=== PATIENT | male | born 1995 | race Caucasian/White ===

== ENCOUNTER 2017-11-07 07:09 | Emergency (ER) | payer OTHER ==
[~2017-11-07] VITALS: Ht 172.7 cm; Wt 76.2 kg
[2017-11-07] MEDS ORDERED: SODIUM CHLORIDE 0.9% 1,000 ML IV ONE (07:33)
[2017-11-07] MEDS ORDERED: SODIUM CHLORIDE 0.9% 1,000ML IVBOLUS ONE (08:00)
[2017-11-07] MEDS ORDERED: ONDANSETRON 2MG/ML, 2ML IVPush ONE (08:00)
[2017-11-07] MEDS ORDERED: FAMOTIDINE 20 MG/2 ML IVP ONE (08:00)
[2017-11-07 08:07] LABS: MEAN CORPUSCULAR HEMOGLOBIN 28.9 pg (27.5-34.5); MEAN CORPUSCULAR HGB CONC 34.3 g/dL (33.2-36.2); MEAN CORPUSCULAR VOLUME 84.3 fL (81-97); MEAN PLATELET VOLUME 8.3 fL (7.4-10.4); PLATELET COUNT 253 x10^3/uL (130-400); RED BLOOD COUNT 6.44 x10^6/uL (4.38-5.82); RED CELL DISTRIBUTION WIDTH 13.4 % (9.4-14.8)
[2017-11-07 08:15] LABS: ALANINE AMINOTRANSFERASE 40 U/L (12-78); ALBUMIN 4.9 g/dL (3.4-5.0); ANION GAP 9 mmol/L (5-15); CALCIUM 9.8 mg/dL (8.5-10.1); CHLORIDE 105 mmol/L (98-107); CREATININE 1.16 mg/dL (0.7-1.3)
[2017-11-07 08:17] LABS: ALKALINE PHOSPHATASE 66 U/L (45-117); BILIRUBIN,TOTAL 1.2 mg/dL (0.2-1.0); TOTAL PROTEIN 8.5 g/dL (6.4-8.2)
[2017-11-07 08:26] LABS: BASOPHILS # (AUTO) 0.03 x10^3/uL (0-0.1); BASOPHILS % (AUTO) 0 % (0-1); EOSINOPHILS # (AUTO) 0.01 x10^3/uL (0-0.4); EOSINOPHILS % (AUTO) 0 % (1-7); LYMPHOCYTES % (AUTO) 7 % (22-44); MD SCAN; MONOCYTES # (AUTO) 0.91 x10^3/uL (0.2-0.8); MONOCYTES % (AUTO) 5 % (2-9); NEUTROPHILS # (AUTO) 16.25 x10^3/uL (1.8-6.8); NEUTROPHILS % (AUTO) 88 % (42-75)
[2017-11-07] MEDS ORDERED: ONDANSETRON 2MG/ML, 2ML ONE (09:04)
[2017-11-07] MEDS ORDERED: FAMOTIDINE 20 MG/2 ML ONE (09:04)
[2017-11-07 09:59] LABS: MICROSCOPIC AUTO
[2017-11-07 10:01] LABS: CULTURE INDICATED? NO
[2017-11-07] MEDS ORDERED: OMNIPAQUE 350 MG/ML, 100ML BOTTLE ONE (10:50)
[2017-11-07] MEDS ORDERED: MORPHINE SULFATE 4 MG/ML, 1ML ONE ×3 (10:57→13:43)
[2017-11-07] MEDS: MORPHINE SULFATE 4 MG/ML, 1ML IVPush PRN ×2 (11:00→12:00)
[2017-11-07] MEDS ORDERED: CEFOTETAN PMX 2GM/50ML 50 ML IV ONE (12:00)
[2017-11-07 13:49] VITALS: BP 145/86
[2017-11-07] MEDS ORDERED: MORPHINE SULFATE 4 MG/ML, 1ML IVPush PRN (14:00)
== END 2017-11-07 14:36 | disposition short-term general hospital (02) ==
LOC: ED 10:27 → UNDOADMOB 12:12 → EDIP 12:12 → ED 14:36
DX: K35.3 Acute appendicitis with localized peritonitis (principal)
CPT/HCPCS: 36415; 74177; 80053; 81001; 83690; 85025; 96361; 96365; 96375; 96376; 99285; J2405; J7030; Q9967; S0074; S0028